=== PATIENT | female | born 1995 | race African-American/Black ===

== ENCOUNTER 2021-02-25 10:45 | Emergency (ER) | payer OTHER ==
[~2021-02-25] VITALS: Ht 167.6 cm; Wt 67.8 kg
[2021-02-25] MEDS ORDERED: PRENTAB53 PO (11:17)
[2021-02-25] MEDS ORDERED: ACET-683 PO (11:17)
[2021-02-25] MEDS ORDERED: PEPC1TAB5 PO (11:17)
[2021-02-25] MEDS ORDERED: NS 1,000 ML IV ONE (12:50)
[2021-02-25] MEDS ORDERED: ACETAMINOPHEN TAB 650MG DOSE (2X325MG) PO ONE (12:50)
[2021-02-25 13:30] LABS: BASO % 0.3 % (0.0-1.0); EOS # 0.1 10^3/uL (0.0-0.5); HEMATOCRIT 30.7 % (36.0-47.0); HEMOGLOBIN 10.3 g/dl (12.0-15.5); LYMPH # 1.6 10^3/uL (1.5-5.0); LYMPH % 17.4 % (24.0-44.0); MEAN CORPUSCULAR HEMOGLOBIN 29.4 pg (27.0-33.0); MEAN CORPUSCULAR HGB CONC 33.6 g/dl (32.0-36.5); MEAN CORPUSCULAR VOLUME 87.7 fl (80.0-96.0); MONO # 0.5 10^3/uL (0.0-0.8); MONO % 5.6 % (2.0-8.0); NEUTROPHILS # 6.9 10^3/uL (1.5-8.5); NEUTROPHILS % 75.2 % (36.0-66.0); PLATELET COUNT, AUTOMATED 188 10^3/uL (150-450); WHITE BLOOD COUNT 9.1 10^3/uL (4.0-10.0)
[2021-02-25 13:52] LABS: BLOOD UREA NITROGEN 7 MG/DL (7-18); CALCIUM LEVEL 8.8 MG/DL (8.5-10.1); CARBON DIOXIDE LEVEL 24 MEQ/L (21-32); CHLORIDE LEVEL 110 MEQ/L (98-107); CREATININE FOR GFR 0.51 MG/DL (0.55-1.30); GLOMERULAR FILTRATION RATE > 60.0 (>60); GLUCOSE, FASTING 111 MG/DL (70-100); POTASSIUM SERUM 4.1 MEQ/L (3.5-5.1); SODIUM LEVEL 138 MEQ/L (136-145)
--- NOTE | 2021-02-25 14:39 | REP ---
INDICATION: pelvic pain 19 weeks gestation. COMPARISON: None. TECHNIQUE: Transabdominal scanning FINDINGS: Multiple sonographic images of the gravid uterus shows a single living intrauterine gestation in variable positions. Doppler interrogation of the heart shows a heart rate of 144 beats per minute. The subjective amniotic fluid volume is within normal limits. The calculated amniotic fluid index is 12 with expected range of 9.3-21.2. The placenta is posterior and not low-lying. The cervix measures 3.7 cm in length and is closed. IMPRESSION: Limited OB ultrasound as described above. <Electronically signed by Zen Coburn > 02/25/21 [id number]
[2021-02-25] MEDS ORDERED: FIOR1CAP PO (15:48)
[2021-02-25 16:32] VITALS: BP 113/62
[2021-02-25 17:36] LABS: GC DNA AMPLIFICATION NEGATIVE (NEGATIVE)
== END 2021-02-25 16:36 | disposition home or self-care (01) ==
LOC: M ED 10:45
DX: O99.891 Other specified diseases and conditions complicating pregnancy (principal); R10.2 Pelvic and perineal pain; O99.352 Diseases of the nervous system complicating pregnancy, second trimester; G43.909 Migraine, unspecified, not intractable, without status migrainosus; Z3A.20 20 weeks gestation of pregnancy; Z88.0 Allergy status to penicillin

== ENCOUNTER 2021-05-09 10:23 | Outpatient (CLI) | payer OTHER ==
[~2021-05-09] VITALS: Ht 167.6 cm; Wt 82.2 kg
[~2021-05-09 10:23] MED LIST: ACET-683 PO; FIOR1CAP PO; PEPC1TAB5 PO; PRENTAB53 PO
[2021-05-09 12:44] VITALS: BP 112/56
== END 2021-05-09 14:27 | disposition home or self-care (01) ==
LOC: M LDO 10:23
PROVIDERS: ATTEND Registered Nurse
DX: O99.353 Diseases of the nervous system complicating pregnancy, third trimester (principal); G43.909 Migraine, unspecified, not intractable, without status migrainosus; Z3A.29 29 weeks gestation of pregnancy; O99.343 Other mental disorders complicating pregnancy, third trimester; F41.9 Anxiety disorder, unspecified; F32.A Depression, unspecified; O99.013 Anemia complicating pregnancy, third trimester; D64.9 Anemia, unspecified; Z88.0 Allergy status to penicillin
CPT/HCPCS: 59025; G0378; G0463

== ENCOUNTER 2021-07-05 20:49 | Outpatient (CLI) | payer OTHER ==
[2021-07-05 21:07] VITALS: BP 129/77
[2021-07-05 21:40] VITALS: BP 135/70
[2021-07-05] MEDS ORDERED: LR 1,000 ML IV ONE (21:45)
== END 2021-07-05 23:53 | disposition home or self-care (01) ==
LOC: M LDO 20:49
PROVIDERS: ATTEND Obstetrics & Gynecology
DX: O47.1 False labor at or after 37 completed weeks of gestation (principal); Z3A.37 37 weeks gestation of pregnancy; Z88.0 Allergy status to penicillin; Z79.899 Other long term (current) drug therapy
CPT/HCPCS: 59025; G0463

== ENCOUNTER 2021-07-07 18:06 | Outpatient (CLI) | payer OTHER ==
[~2021-07-07] VITALS: Ht 167.6 cm; Wt 89.9 kg
[2021-07-07 18:19] VITALS: BP 146/80
[2021-07-07 18:45] VITALS: BP 148/81
[2021-07-07] MEDS ORDERED: HOME MED LIST COMPLETE! XX SCH (18:45)
[2021-07-07 19:16] VITALS: BP 123/58
[2021-07-07 20:13] VITALS: BP 144/68
== END 2021-07-07 20:55 | disposition home or self-care (01) ==
LOC: M LDO 18:06
PROVIDERS: ATTEND Obstetrics & Gynecology
DX: O47.1 False labor at or after 37 completed weeks of gestation (principal); Z3A.37 37 weeks gestation of pregnancy; Z88.0 Allergy status to penicillin; Z79.899 Other long term (current) drug therapy
CPT/HCPCS: 59025; 81001; G0463

== ENCOUNTER 2021-07-12 04:26 | Inpatient (IN) | payer OTHER ==
[~2021-07-12] VITALS: Ht 167.6 cm; Wt 90.7 kg
[2021-07-12] VITALS (77 sets, daily range): BP systolic 107–153; BP diastolic 55–96
[2021-07-12] MEDS ORDERED: HOME MED LIST COMPLETE! XX SCH (04:55)
[2021-07-12] MEDS ORDERED: LACTATED RINGER'S 1000 ML IV STA (05:36)
[2021-07-12] MEDS ORDERED: METHYLERGONOVINE MALEATE 0.2 MG/ML VIAL (J2210) IM PRN (05:40)
[2021-07-12] MEDS ORDERED: TRANEXAMIC ACID INJection 1,000 MG in NS 100 ML IV PRN (05:40)
[2021-07-12] MEDS ORDERED: LIDOCAINE 1% MDV 20ML VIAL INFIL PRN (05:40)
[2021-07-12] MEDS ORDERED: OXYTOCIN DRIP 30 UNITS in IV 1 EA IV PRN ×6 (05:40)
[2021-07-12] MEDS ORDERED: CARBOPROST TROMETHAMINE 250 MCG/ML AMP IM PRN (05:40)
[2021-07-12 05:49] LABS: HEMATOCRIT 27.5 % (36.0-47.0); HEMOGLOBIN 8.7 g/dl (12.0-15.5); MEAN CORPUSCULAR HEMOGLOBIN 24.5 pg (27.0-33.0); MEAN CORPUSCULAR HGB CONC 31.6 g/dl (32.0-36.5); MEAN CORPUSCULAR VOLUME 77.5 fl (80.0-96.0); PLATELET COUNT, AUTOMATED 220 10^3/uL (150-450); RED BLOOD COUNT 3.55 10^6/uL (4.00-5.40); WHITE BLOOD COUNT 11.8 10^3/uL (4.0-10.0)
[2021-07-12] MEDS: LR 1,000 ML IV SCH ×2 (07:30→11:53)
[2021-07-12] MEDS ORDERED: FENTANYL 2MCG/ML ROPIVACAINE 0.2% IN 0.9% NACL 100ML IVBAG As Ordered ONE (08:57)
[2021-07-12] MEDS ORDERED: REFRIGERATOR IV KEYS XX PRN (09:55)
[2021-07-12] MEDS ORDERED: LACTATED RINGER'S 1000 ML IV PRN (09:55)
[2021-07-12] MEDS ORDERED: NALOXONE INJ 0.4MG/1ML VIAL (J2310 PER 1MG) IV PRN (09:55)
[2021-07-12] MEDS ORDERED: EPIDURAL COMMENT XX SCH (09:55)
[2021-07-12] MEDS ORDERED: diphenhydrAMINE 50MG/ML VIAL (J1200) IV PRN (09:55)
[2021-07-12] MEDS ORDERED: ONDANSETRON 4MG/2ML VIAL IV PRN (09:55)
[2021-07-12] MEDS ORDERED: ePHEDrine SULFATE 25 MG/5 ML(5MG/ML) SYRINGE IV PRN (09:55)
[2021-07-12] MEDS ORDERED: EPIDURAL/PCA KEYS XX PRN (09:55)
[2021-07-12] MEDS: FENTANYL/ROPIVACAINE/NACL BAG 100 ML EPIDURAL SCH ×2 (10:03→18:54)
[2021-07-12] MEDS ORDERED: OXYTOCIN DRIP 30 UNITS in IV 1 EA IV SCH (15:45)
[2021-07-12] MEDS ORDERED: LR 1,000 ML IV SCH (15:45)
[2021-07-13] VITALS (8 sets, daily range): BP systolic 113–139; BP diastolic 57–82
[2021-07-13] MEDS ORDERED: LR 1,000 ML IV SCH (00:35)
[2021-07-13] MEDS ORDERED: MEASLES,MUMPS,RUBELLA VACCINE INJ (MMR-II) (90707) SC SCH (00:35)
[2021-07-13] MEDS ORDERED: RHOGAM 300 MCG (1500 IU) INJ (J2790) IM SCH (00:35)
[2021-07-13] MEDS ORDERED: ONDANSETRON 4MG/2ML VIAL IV PRN (00:35)
[2021-07-13] MEDS ORDERED: ACETAMINOPHEN 500 MG TAB PO SCH (00:35)
[2021-07-13] MEDS ORDERED: DOCUSATE SODIUM 100MG CAPSULE PO PRN (00:35)
[2021-07-13] MEDS ORDERED: OXYTOCIN DRIP 30 UNITS in IV 1 EA IV SCH ×4 (00:35)
[2021-07-13] MEDS ORDERED: PROMETHAZINE 25 MG TAB PO PRN (00:35)
[2021-07-13] MEDS ORDERED: DIBUCAINE 1% OINTMENT 30GM TOP PRN (00:35)
[2021-07-13 00:42] LABS: CORD GAS ABE A -7.3; CORD GAS HCO3 A 20.5 MEQ/L; CORD GAS O2 SAT A 99.3 %; CORD GAS PCO2 A 49.4 mmHg; CORD GAS PH A 7.235 UNITS; CORD GAS PO2 A 113.6 mmHg; CORD GAS SBC A 18.7 MEQ/L
[2021-07-13 00:43] LABS: CORD GAS HCO3 V 21.2 MEQ/L; CORD GAS O2 SAT V 81.1 %; CORD GAS PCO2 V 39.4 mmHg; CORD GAS PH V 7.349 UNITS; CORD GAS PO2 V 35.8 mmHg; CORD GAS SBC V 20.8 MEQ/L; CORD GAS TCO2 V 22.4 MEQ/L
[2021-07-13] MEDS: ACETAMINOPHEN 500 MG TAB PO SCH ×4 (01:28→19:50)
[2021-07-13] MEDS: IBUPROFEN 800 MG TAB PO SCH ×3 (02:28→17:20)
[2021-07-13 07:52] LABS: HEMATOCRIT 23.1 % (36.0-47.0); HEMOGLOBIN 7.3 g/dl (12.0-15.5); MEAN CORPUSCULAR HEMOGLOBIN 24.4 pg (27.0-33.0); MEAN CORPUSCULAR HGB CONC 31.6 g/dl (32.0-36.5); MEAN CORPUSCULAR VOLUME 77.3 fl (80.0-96.0); PLATELET COUNT, AUTOMATED 188 10^3/uL (150-450); RED BLOOD COUNT 2.99 10^6/uL (4.00-5.40); WHITE BLOOD COUNT 10.8 10^3/uL (4.0-10.0)
[2021-07-13] MEDS: FAMOTIDINE 20 MG TAB PO SCH (09:59)
[2021-07-13] MEDS: PRENATAL VITAMINS CHEWABLE TABLET PO SCH (09:59)
[2021-07-14] MEDS: IBUPROFEN 800 MG TAB PO SCH ×2 (01:32→09:44)
[2021-07-14] MEDS: ACETAMINOPHEN 500 MG TAB PO SCH (01:32)
[2021-07-14 06:00] VITALS: BP 116/59
[2021-07-14] MEDS: PRENATAL VITAMINS CHEWABLE TABLET PO SCH (09:44)
[2021-07-14] MEDS: FAMOTIDINE 20 MG TAB PO SCH (09:44)
== END 2021-07-14 15:25 | disposition home or self-care (01) | DRG 807 ==
LOC: M LDO 04:26 → M LDI 05:26 → M OBS 07-13 02:05
PROVIDERS: ADMIT Obstetrics & Gynecology; ATTEND Obstetrics & Gynecology
PROC: 10E0XZZ Delivery of Products of Conception, External Approach (ICD-10-PCS; principal; 2021-07-13)
DX: O76 Abnormality in fetal heart rate and rhythm complicating labor and delivery (principal); Z37.0 Single live birth; Z3A.38 38 weeks gestation of pregnancy